=== PATIENT | female | born 1970 | race African-American/Black ===

== ENCOUNTER 2018-03-27 20:47 | Emergency (ER) | payer MEDICAID ==
[~2018-03-27] VITALS: Ht 165.1 cm; Wt 68.0 kg
[2018-03-27] MEDS ORDERED: HYDROCODONE/ACETAMINOPHEN 5/325MG TABLET PO ONE (22:30)
[2018-03-27] MEDS ORDERED: KETOROLAC 30MG/ML VIAL IM ONE (22:30)
[2018-03-28 00:11] VITALS: BP 136/80
== END 2018-03-28 00:13 | disposition home or self-care (01) ==
LOC: ER 20:47
DX: S16.1XXA Strain of muscle, fascia and tendon at neck level, initial encounter (principal); M79.642 Pain in left hand; R07.89 Other chest pain; F17.200 Nicotine dependence, unspecified, uncomplicated; V49.49XA Driver injured in collision with other motor vehicles in traffic accident, initial encounter; Y93.89 Activity, other specified; Y92.89 Other specified places as the place of occurrence of the external cause; Y99.8 Other external cause status
CPT/HCPCS: 71045; 72125; 73130; 81025; 93005; 96372; 99284; J1885; Z7610